=== PATIENT | male | born 1990 | race Caucasian/White ===

== ENCOUNTER 2018-03-20 10:53 | Emergency (ER) | payer MEDICAID ==
[2018-03-20 11:25] VITALS: BP 125/75
--- NOTE | 2018-03-20 11:55 | EDPHY ---
H & P Stated Complaint: "fever" worsening swelling/ pain from jaw infection on PCN Source: Patient Exam Limitations: No limitations - Personal History Tetanus Vaccine Date: 2012 - Medical/Surgical History Hx Asthma: No Hx Chronic Respiratory Disease: No Hx Diabetes: No Hx Cardiac Disease: No Hx Renal Disease: No Hx Cirrhosis: No Hx Alcoholism: No Hx HIV/AIDS: No Hx Splenectomy or Spleen Trauma: No Other PMH: ADHD - Social History Smoking Status: Former smoker Time Seen by Provider: 03/20/18 11:54 HPI/ROS: HPI: This is a 28-year-old male who presents with Chief Complaint: "fever" worsening swelling/ pain from jaw infection on PCN Location: Bottom left tooth Quality: Infection Duration: 1-3 days Signs and Symptoms: + fever, no nausea, no vomiting, no diarrhea, no urinary symptoms, no chest pain, no shortness of breath, no wheezing, no cough, no sore throat, no neck stiffness, no joint pain, no swollen glands, no ear pain, no rash Timing: Worsening Severity: Moderate Context: Patient had a root canal performed by [facility] on Monday. Started on penicillin yesterday. Patient woke up this morning with abscess and lower lip swelling accompanied by low-grade fever. Patient reports that he is able to eat to self food and swallow liquids without difficulty. Denies any neck stiffness/chills/fatigue. Patient did not call his dentist. He reports compliance taking his penicillin. Modifying Factors: Penicillin Comment: ROS: see HPI Constitutional: + fever, no chills, no weight loss Eyes: No blurred vision Respiratory: No shortness of breath, no cough Cardiovascular: No chest pain, no palpitations Gastrointestinal: No nausea, no vomiting, no diarrhea, no hematemesis, no blood in stool Genitourinary: No dysuria, no blood in urine Extremities: No myalgias, no edema Neurologic: No weakness, no numbness Skin: No rashes, no petechiae Hematologic: No bruising, no bleeding MEDICAL/SURGICAL/SOCIAL HISTORY: Medical history: Attention deficit hyperactivity disorder Surgical history: Denies Social history: Employed. Family history noncontributory. CONSTITUTIONAL: Nontoxic appearing adult white male, awake and alert, no obvious distress HEENT: Atraumatic and normocephalic, PERRL, EOMI. Nares patent; no rhinorrhea; no nasal mucosal edema. Tympanic membranes clear. Oropharynx clear, 2 #24 intact; no decay; small area of fluctuance noted at the base near the buccal mucosa. Mild gingival erythema. No malocclusion. No facial swelling. no exudate and moist pink mucosa. Airway patent. No lymphadenopathy. No meningismus. Cardiovascular: Normal S1/S2, regular rate, regular rhythm, without murmur rub or gallop. PULMONARY/CHEST: Symmetrical and nontender. Clear to auscultation bilaterally. Good air movement. No accessory muscle usage. ABDOMEN: Soft, nondistended, nontender, no rebound, no guarding, no peritoneal signs, no masses or organomegaly. No CVAT. EXTREMITIES: 2/2 pulses, strength 5/5, no deformities, no clubbing, no cyanosis or edema. NEUROLOGICAL: no focal neuro deficits. GCS 15. SKIN: Warm and dry, no erythema. no rash. Good capillary refill. (Jessica Alegria) Constitutional: Initial Vital Signs Temperature (C) 37.0 C 03/20/18 11:22 Heart Rate 81 03/20/18 11:22 Respiratory Rate 16 03/20/18 11:22 Blood Pressure 125/75 H 03/20/18 11:22 O2 Sat (%) 98 03/20/18 11:22 O2 Delivery Mode Room Air Allergies/Adverse Reactions: No Known Allergies Allergy (Verified 12/13/15 11:00) Home Medications: Medication Instructions Recorded Hydrocodone/APAP 5/325 [[place] 1 each PO Q4-6PRN PRN #15 tab 12/13/15 5/325 (*)] Lisdexamfetamine Dimesylate 20 mg PO 12/13/15 [Vyvanse] Penicillin V Potassium 500 mg PO TID #30 tablet 12/13/15 Clindamycin HCl [Clindamycin] 300 mg PO TID #30 cap 03/20/18 Medical Decision Making Procedures: Procedure: Abscess drainage. The patient's abscess was located on the front bottom left tooth #24. I used topical let for anesthesia. I obtained verbal consent from the patient to drain the abscess who was informed about the possibility of bleeding and pain. The abscess was incised with 18 gauge needle and a 3 mL amount of purulent drainage was expressed. I irrigated the wound. The patient tolerated the procedure well. The procedure was performed by myself. (Jessica Alegria) ED Course/Re-evaluation: No signs of airway compromise/facial cellulitis Topical let applied; I&D performed Given clindamycin and a prescription for same Advised to follow up with dentist This patient was seen under the supervision of my secondary supervising physician. I evaluated care for this patient independently. (Jessica Alegria) The patient was evaluated and managed by the physician cafe assistant. I have reviewed this chart and I agree with the findings and plan of care as documented , as indicated by my signature. I am the secondary supervising physician. ( Isabel Elliott) Differential Diagnosis: Differential diagnosis includes but is not limited to dental abscess. (Jessica Alegria) - Data Points Medications Given: Discontinued Medications Clindamycin (Clindamycin) 300 mg PO EDNOW ONE PRN Reason: Protocol Stop: 03/20/18 12:08 Last Admin: 03/20/18 12:11 Dose: 300 mg Tetracaine/Epinephrine/Lidocaine (Let Gel Topical) 1 ea TP EDNOW ONE Stop: 03/20/18 12:08 Last Admin: 03/20/18 12:11 Dose: 1 ea Departure - Departure Disposition: Home, Routine, Self-Care Clinical Impression: Periapical abscess Condition: Good Instructions: Dental Abscess (ED) Additional Instructions: Please follow-up with [facility] as soon as possible. Stop taking the antibiotics that she currently has. Start taking Clindamycin 3 times daily times 10 days. Do not miss any doses. Eat a soft diet. Swish and spit with dilute hydrogen peroxide. Take Tylenol 650 mg every 4 hr and/or ibuprofen 600 mg every 8 hr as needed for pain. Referrals: Wendi Starkey DO [Primary Care Provider] - As per Instructions Stand Alone Forms: Work Excuse Prescriptions: Clindamycin HCl [Clindamycin] 300 mg PO TID #30 cap
[2018-03-20] MEDS ORDERED: CLINDAMYCIN 150 MG CAP PO ONE (12:07)
[2018-03-20] MEDS ORDERED: LET GEL TOPICAL 1 EA SYR TP ONE ×2 (12:07→12:08)
[2018-03-20] MEDS ORDERED: CLINDAMYCIN 150 MG CAP ONE (12:08)
== END 2018-03-20 12:53 | disposition home or self-care (01) ==
PROC: 0N9 Head and Facial Bones, Drainage (ICD-10-PCS; principal; 2018-03-20)
DX: T81.89XA Other complications of procedures, not elsewhere classified, initial encounter (principal); K04.7 Periapical abscess without sinus; Z87.891 Personal history of nicotine dependence; Y82.8 Other medical devices associated with adverse incidents